=== PATIENT | female | born 1985 | race African-American/Black ===

== ENCOUNTER 2016-07-18 00:57 | Emergency (ER) | payer OTHER ==
[~2016-07-18] VITALS: Ht 154.9 cm; Wt 95.8 kg
[~2016-07-18 00:57] MED LIST: ABILIFY10 MG PO; ABILIFY20 MG PO; ADDERALL XR 2020 MG PO; CLONIDINE HCL0.1 MG; CYMBALTA30 MG PO; HYDROXYZINE HCL50 MG PO; LAMICTAL25 MG PO; PAXIL40 M1 PO; PERCOCET 10/1 TABLET PO; PROZAC40 MG PO; SOMA250 MG PO; SOMA350 M1 PO; SUBOXONE 8 MG-1 EAC2 SL; ULTRAM50 MG PO; XANAX XR2 MG PO; XANAX0.5 MG PO; XANAX2 MG PO
[2016-07-18 01:31] LABS: HEMATOCRIT 36.8 % (36.0-46.0); MCH 30.5 PG (29.0-34.0); MCHC 34.5 G/DL (30.0-36.0); MCV 88.2 FL (83-99); MEAN PLAT.VOLUME 9.9 uM^3 (9.5-12.4); PLATELET COUNT 294 K/uL (156-360); RBC DIS.WIDTH-CV 11.7 % (11.8-14.6); RBC DIS.WIDTH-SD 37.2 % (39-53); RED BLOOD COUNT 4.17 M/uL (3.80-5.20); WHITE BLOOD COUNT 9.4 K/uL (4.1-10.2)
[2016-07-18 01:40] LABS: CHLORIDE 107 mEq/L (99-109); POTASSIUM 3.8 mEq/L (3.7-5.4); SODIUM 139 mEq/L (136-147)
[2016-07-18 01:41] LABS: GLUCOSE 115 mg/dL (70-99)
[2016-07-18 01:43] LABS: ANION GAP 11 MEQ/L (2-14)
[2016-07-18 01:45] LABS: GFR ESTIMATE (CALCULATED) > 59 mL/min/
[2016-07-18 01:46] LABS: UREA NITROGEN (BUN) 10 mg/dL (9-23)
[2016-07-18] MEDS ORDERED: DISKETS40 MG PO (01:47)
[2016-07-18] MEDS ORDERED: AMPHETAMINE SAL20 MG PO (01:47)
[2016-07-18 01:58] LABS: ADD MIUA? YES; BILIRUBIN NEGATIVE; BLOOD NEGATIVE; COLOR YELLOW ((YELLOW)); GLUCOSE (STRIP) NEGATIVE; KETONES NEGATIVE; LEUKOCYTES SMALL; NITRITE POSITIVE; PROTEIN (STRIP) NEGATIVE; SPECIFIC GRAVITY 1.024 (1.000-1.030); UROBILINOGEN 0.2 MG/DL (0.2-1.0)
[2016-07-18 02:14] LABS: EPITHELIAL CELLS 1+ /HPF; RED BLOOD CELLS NONE SEEN /HPF (0-5); WHITE BLOOD CELLS 0-5 /HPF (0-5)
[2016-07-18 02:14] LABS: QUANTITATIVE HCG 56411.8 MIU/ML
[2016-07-18 02:15] LABS: BACTERIA 3+ /HPF; MUCUS 1+ /LPF; UCUL ADDED? YES
[2016-07-18] MEDS ORDERED: KEFLEX500 MG PO (02:34)
[2016-07-18 02:56] VITALS: BP 142/83
== END 2016-07-18 02:56 | disposition home or self-care (01) ==
LOC: RME 00:57 → EME 00:57 → RME 02:56
PROVIDERS: Physician Assistant
DX: O23.41 Unspecified infection of urinary tract in pregnancy, first trimester (principal); O99.331 Smoking (tobacco) complicating pregnancy, first trimester; F17.200 Nicotine dependence, unspecified, uncomplicated; Z3A.09 9 weeks gestation of pregnancy
CPT/HCPCS: 76801; 80048; 81003; 84702; 85027; 86850; 86900; 86901; 87077; 87086; 87186; 99281; 99284; J2270

== ENCOUNTER 2017-02-03 20:21 | Inpatient (IN) | payer OTHER ==
[~2017-02-03] VITALS: Ht 157.5 cm; Wt 100.0 kg
[~2017-02-03 20:21] MED LIST changes: +AMPHETAMINE SAL20 MG PO; +DISKETS40 MG PO; +KEFLEX500 MG PO
[2017-02-03] MEDS ORDERED: METHADOSE40 MG PO (21:02)
[2017-02-03] MEDS ORDERED: COLACE100 MG PO (21:04)
[2017-02-03 21:14] VITALS: BP 137/77
[2017-02-03] MEDS ORDERED: PRENATABS RX T1 EACH PO (21:15)
[2017-02-04] VITALS (29 sets, daily range): BP systolic 107–150; BP diastolic 56–85
[2017-02-04 02:43] LABS: EOSINOPHIL (%) 0 % (0-5); HEMATOCRIT 36.5 % (36.0-46.0); IMMATURE GRANULOCYTE (%) 0.6 % (0.0-0.7); IMMATURE GRANULOCYTE COUNT 0.1 K/uL; LYMPHOCYTE COUNT 1.8 K/uL (1.0-2.8); MCH 29.9 PG (29.0-34.0); MCHC 34.2 G/DL (30.0-36.0); MCV 87.3 FL (83-99); MEAN PLAT.VOLUME 10.6 uM^3 (9.5-12.4); MONOCYTE (%) 4.2 % (3-12); MONOCYTE COUNT 0.4 K/uL (0-0.8); PLATELET COUNT 225 K/uL (156-360); RBC DIS.WIDTH-CV 12.9 % (11.8-14.6); RED BLOOD COUNT 4.18 M/uL (3.80-5.20); WHITE BLOOD COUNT 10.3 K/uL (4.1-10.2)
[2017-02-04 02:52] LABS: CHLORIDE 107 mEq/L (99-109); POTASSIUM 3.7 mEq/L (3.7-5.4); SODIUM 138 mEq/L (136-147)
[2017-02-04 02:54] LABS: GLUCOSE 104 mg/dL (70-99)
[2017-02-04 02:55] LABS: ANION GAP 11 MEQ/L (2-14)
[2017-02-04 02:56] LABS: TOTAL BILIRUBIN 0.5 mg/dL (0.0-1.0)
[2017-02-04 02:57] LABS: ALKALINE PHOSPHATASE 168 IU/L (3-129)
[2017-02-04 02:58] LABS: GFR ESTIMATE (CALCULATED) > 59 mL/min/
[2017-02-04 02:59] LABS: UREA NITROGEN (BUN) 6 mg/dL (9-23)
[2017-02-05 06:09] LABS: EOSINOPHIL (%) 0.8 % (0-5); EOSINOPHIL COUNT 0.1 K/uL (0-0.3); HEMATOCRIT 30.9 % (36.0-46.0); IMMATURE GRANULOCYTE (%) 0.4 % (0.0-0.7); IMMATURE GRANULOCYTE COUNT 0.1 K/uL; INSTRUMENT ABS NEUTROPHIL CT 6.9 K/uL; LYMPHOCYTE COUNT 3.2 K/uL (1.0-2.8); MCH 30.3 PG (29.0-34.0); MCV 89.3 FL (83-99); MEAN PLAT.VOLUME 10.8 uM^3 (9.5-12.4); MONOCYTE (%) 9.9 % (3-12); MONOCYTE COUNT 1.1 K/uL (0-0.8); NEUTROPHIL (%) 60.3 % (45-76); NEUTROPHIL COUNT 6.9 K/uL (1.8-6.4); PLATELET COUNT 198 K/uL (156-360); RBC DIS.WIDTH-CV 13.2 % (11.8-14.6); RED BLOOD COUNT 3.46 M/uL (3.80-5.20); WHITE BLOOD COUNT 11.4 K/uL (4.1-10.2)
[2017-02-05 07:46] VITALS: BP 128/74
[2017-02-05 15:54] VITALS: BP 132/88
[2017-02-05 23:00] VITALS: BP 99/53
[2017-02-06 07:42] VITALS: BP 110/64
[2017-02-06] MEDS ORDERED: LAMICTAL25 MG PO (13:02)
[2017-02-06] MEDS ORDERED: Tylenol Extra Streng PO (13:02)
[2017-02-06] MEDS ORDERED: CLONAZEPAM0.5 MG PO (13:02)
[2017-02-06] MEDS ORDERED: BUPROPION XL150 MG PO (13:02)
== END 2017-02-06 14:34 | DRG 775 ==
LOC: LDRP-OP → 2WEST 20:22 → LDRP-OP 03-16 11:15
PROVIDERS: Advanced Practice Midwife
PROC: 3E0S3CZ (ICD-10-PCS; principal; 2017-02-04)
PROC: 10E0XZZ Delivery of Products of Conception, External Approach (ICD-10-PCS; principal; 2017-02-04)
PROC: 00HU33Z Insertion of Infusion Device into Spinal Canal, Percutaneous Approach (ICD-10-PCS; principal; 2017-02-04)
DX: O99.324 Drug use complicating childbirth (principal); O99.344 Other mental disorders complicating childbirth; Z37.0 Single live birth; Z3A.38 38 weeks gestation of pregnancy; F14.90 Cocaine use, unspecified, uncomplicated; E66.9 Obesity, unspecified; O99.214 Obesity complicating childbirth; Z68.38 Body mass index [BMI] 38.0-38.9, adult; J45.909 Unspecified asthma, uncomplicated; Z63.4 Disappearance and death of family member; F11.20 Opioid dependence, uncomplicated; F31.9 Bipolar disorder, unspecified; O69.81X0 Labor and delivery complicated by cord around neck, without compression, not applicable or unspecified; O99.52 Diseases of the respiratory system complicating childbirth
CPT/HCPCS: 80053; 85025; 86850; 86900; 86901; C1755; G0378; J2270; J3010; J7120